=== PATIENT | male | born 1950 | race Two or more races ===

== ENCOUNTER 2024-10-06 07:17 | Outpatient (CLI) | payer OTHER ==
[~2024-10-06 07:17] MED LIST: AVAPRO150 MG; COUMADIN2.5 MG; TOPROL XL50 MG
== END 2024-10-06 07:23 | disposition home or self-care (01) ==
LOC: TOM 07:17
PROVIDERS: ATTEND Internal Medicine Gastroenterology
DX: R19.5 Other fecal abnormalities (principal)